=== PATIENT | female | born 1970 | race Caucasian/White ===

== ENCOUNTER 2022-01-16 15:20 | Outpatient (CLI) | payer MEDICAID ==
[~2022-01-16] VITALS: Ht 182.9 cm; Wt 143.3 kg
[2022-01-16] MEDS ORDERED: albuterol 2.5 MG/3 ML nebule NEB PRN (16:05)
== END 2022-01-16 23:59 | disposition home or self-care (01) ==
LOC: RT 15:20
PROVIDERS: ATTEND Physician Assistant Medical
DX: J45.20 Mild intermittent asthma, uncomplicated (principal); Z79.899 Other long term (current) drug therapy
CPT/HCPCS: 94060; 94760